=== PATIENT | male | born 1990 | race African-American/Black ===

== ENCOUNTER 2018-10-18 21:38 | Emergency (ER) | payer MEDICAID, OTHER ==
[~2018-10-18] VITALS: Ht 170.2 cm; Wt 80.0 kg
[2018-10-18] MEDS ORDERED: KETOROLAC 60MG/2ML VIAL IM ONE (22:45)
[2018-10-19 00:15] VITALS: BP 146/78
== END 2018-10-19 00:45 | disposition home or self-care (01) ==
LOC: ER 21:38
DX: S09.8XXA Other specified injuries of head, initial encounter (principal); F17.200 Nicotine dependence, unspecified, uncomplicated; F12.10 Cannabis abuse, uncomplicated; J45.909 Unspecified asthma, uncomplicated; Y08.89XA Assault by other specified means, initial encounter; Y93.89 Activity, other specified; Y92.89 Other specified places as the place of occurrence of the external cause; Y99.8 Other external cause status
CPT/HCPCS: 70450; 96372; 99284; J1885